=== PATIENT | male | born 1965 | race Caucasian/White ===

== ENCOUNTER 2016-09-11 07:40 | Emergency (ER) | payer SELFPAY ==
[2016-09-11 08:37] LABS: HEMOGLOBIN 13.3 gm/dl (14.0-17.5); RED BLOOD COUNT 5.48 M/UL (4.20-5.50)
[2016-09-11 08:52] LABS: BUN/CREATININE RATIO 21 (0-10)
== END 2016-09-11 11:13 | disposition home or self-care (01) ==
LOC: ER1 07:40
PROVIDERS: Family Medicine
DX: K62.5 Hemorrhage of anus and rectum (principal); E11.65 Type 2 diabetes mellitus with hyperglycemia; J44.9 Chronic obstructive pulmonary disease, unspecified; K64.9 Unspecified hemorrhoids; K57.92 Diverticulitis of intestine, part unspecified, without perforation or abscess without bleeding; Z91.040 Latex allergy status; Z79.84 Long term (current) use of oral hypoglycemic drugs; Z79.4 Long term (current) use of insulin; Z79.82 Long term (current) use of aspirin; Z79.899 Other long term (current) drug therapy; Z87.891 Personal history of nicotine dependence
CPT/HCPCS: 36415; 80053; 82272; 83690; 85025; 86850; 86900; 86901; 96361; 96374; 99284; J2405; J7030; J7050; Q9962

== ENCOUNTER → 2020-04-20 | Outpatient (CLI) | payer MEDICARE, SELFPAY ==
[~2020-04-20] MED LIST: AMBIEN10 MG PO; APIDRA SOL100 UNIT/1 SQ; APIDRA100 UNIT/1 SC; ASPIR-LOW81 MG PO; ATORVASTATIN CA40 MG PO; ATROVENT HFA12.9 GM INH; BACTRIM DS TAB1 EACH PO; CLARITIN10 M2 PO; CYMBALTA60 MG PO; DITROPAN 5 MG TA5 MG PO; DOXYCYCLINE HY100 MG PO; ELAVIL 50 MG TA50 MG PO; ERYTHROMYCIN O3.5 GM OU; FLOMAX 0.4 MG0.4 MG PO; GLUCOPHAGE1000 MG PO; HUMALOG100 UNIT/1 SC; HYDROCODON-ACE1 EAC2 PO; IRON325 M1 PO; KEFLEX CAP 500500 MG PO; LACTINEX TABLET1 EA PO; LANTUS100 UNIT/1 SQ; LEVAQUIN500 MG PO; LEVEMIR100 UNIT/1 SQ; LIPITOR TAB 2020 MG PO; LISINOPRIL10 MG PO; LISINOPRIL20 MG PO; LISINOPRIL40 MG PO; LYRICA50 MG PO; MAGOX 400400 MG PO; MEDROL DOSEPAK 24 MG PO; MELATONIN5 M2 PO; METFORMIN HCL1000 M1 PO; METOPROLOL TART25 MG PO; NITROGLYCERIN0.4 MG SL; NORCO 5-325 TA1 EACH PO; NORVASC10 MG PO; NOVOLOG100 UNIT/1 SQ; PENVEE K 500 M500 MG PO; PERCOCET 5/325 T1 EA PO; PHENERGAN 25 MG25 M1 PO; PLAVIX 75 MG TA75 MG PO; PLETAL 100 MG100 MG PO; PROTONIX40 MG PO; SEROQUEL200 MG PO; SYNTHROID75 MCG PO; TOPAMAX50 MG PO; TOPROL XL100 MG PO; TOUJEO SC; TOUJEO SQ; TRICOR145 MG PO; VENTOLIN HFA 66.7 GM INH; VIBRAMYCIN 100100 MG PO; VICTOZA 1818 MG/3 ML SC; XYZAL5 MG PO; ZOFRAN4 MG PO
== END ==
LOC: HEART 5 04-17 08:49
DX: R06.09 Other forms of dyspnea (principal)
CPT/HCPCS: 78452; A9502; J2785

== ENCOUNTER → 2020-07-05 | Outpatient (CLI) | payer MEDICARE, OTHER | LOC: CT 11:33 | DX: N28.1 Cyst of kidney, acquired (principal) | CPT/HCPCS: 36415; 74170; 82565; 84520; Q9967 ==

== ENCOUNTER → 2020-08-04 | Outpatient (CLI) | payer MEDICARE, OTHER | LOC: KOH-I 08:57 | DX: Z12.2 Encounter for screening for malignant neoplasm of respiratory organs (principal); F17.210 Nicotine dependence, cigarettes, uncomplicated; R91.1 Solitary pulmonary nodule; R91.8 Other nonspecific abnormal finding of lung field; R59.0 Localized enlarged lymph nodes | CPT/HCPCS: 71271 ==

== ENCOUNTER 2020-09-06 16:26 | Emergency (ER) | payer MEDICARE, OTHER ==
[~2020-09-06 16:26] MED LIST changes: -MEDROL DOSEPAK 24 MG PO; -VIBRAMYCIN 100100 MG PO
[2020-09-06 17:31] LABS: HEMOGLOBIN 17.2 gm/dl (14.0-17.5); RED BLOOD COUNT 5.63 M/UL (4.20-5.50); WHITE BLOOD COUNT 12.4 K/UL (4.5-11.0)
[2020-09-06 17:57] LABS: BUN/CREATININE RATIO 17 (0-10)
== END 2020-09-06 21:10 | disposition home or self-care (01) ==
LOC: ER1 16:26
PROVIDERS: Internal Medicine
DX: R10.84 Generalized abdominal pain (principal); E11.9 Type 2 diabetes mellitus without complications; I10 Essential (primary) hypertension; J44.9 Chronic obstructive pulmonary disease, unspecified; E78.5 Hyperlipidemia, unspecified; F17.210 Nicotine dependence, cigarettes, uncomplicated
CPT/HCPCS: 80053; 81001; 83690; 85025; 85610; 85730; 96374; 96375; 96376; 99285; J2270; J2405; Q9967

== ENCOUNTER 2020-10-31 12:04 | Emergency (ER) | payer MEDICARE ==
[2020-10-31 12:29] LABS: RED BLOOD COUNT 5.52 M/UL (4.20-5.50); WHITE BLOOD COUNT 10.4 K/UL (4.5-11.0)
[2020-10-31 12:58] LABS: BUN/CREATININE RATIO 19 (0-10)
[2020-10-31] MEDS ORDERED: VIBRAMYCIN 100100 MG PO (18:35)
[2020-10-31] MEDS ORDERED: MEDROL DOSEPAK 24 MG PO (18:35)
== END 2020-10-31 18:55 | disposition home or self-care (01) ==
LOC: ER1 12:04
PROVIDERS: Physician Assistant
DX: J40 Bronchitis, not specified as acute or chronic (principal); R07.9 Chest pain, unspecified; R06.02 Shortness of breath; F17.210 Nicotine dependence, cigarettes, uncomplicated; E11.9 Type 2 diabetes mellitus without complications; I10 Essential (primary) hypertension; E78.5 Hyperlipidemia, unspecified; Z79.899 Other long term (current) drug therapy; Z20.822 Contact with and (suspected) exposure to COVID-19
CPT/HCPCS: 71045; 80053; 82550; 82553; 83874; 84484; 85025; 85610; 85730; 93005; 93971; 99285; Q9967; U0002

== ENCOUNTER → 2021-02-06 | Outpatient (CLI) | payer MEDICARE ==
[~2021-02-06] MED LIST changes: +MEDROL DOSEPAK 24 MG PO; +VIBRAMYCIN 100100 MG PO
== END ==
LOC: KOH-I 08:36
DX: R59.0 Localized enlarged lymph nodes (principal)
CPT/HCPCS: 71250

== ENCOUNTER → 2021-08-10 | Outpatient (CLI) | payer MEDICARE | LOC: KOH-I 13:58 | DX: R59.0 Localized enlarged lymph nodes (principal) | CPT/HCPCS: 71250 ==